=== PATIENT | male | born 1975 ===

== ENCOUNTER 2021-07-15 01:20 | Inpatient (IN) ==
[2021-07-15] MEDS ORDERED: Naloxone 0.4 MG/ML INJ IVP PRN (03:42)
[2021-07-15] MEDS ORDERED: Dextrose Gel 15 GM/37.5 ML TUBE PO PRN ×2 (03:51)
[2021-07-15] MEDS ORDERED: *HR* Dextrose 50 % in Water (Syg) 50 ML SYRINGE IVP PRN (03:51)
[2021-07-15] MEDS ORDERED: D5% in Water 1,000 ML IVC PRN (03:51)
[2021-07-15] MEDS ORDERED: *HR* LORazepam 2 MG/ML VIAL IVP PRN ×3 (04:03)
[2021-07-15 04:20] VITALS: BP 78/39; PULSE 95; TEMP 94.9; O2SAT 91
[2021-07-15] MEDS ORDERED: 0.9 % Sodium Chloride 500 ML ONE (04:21)
[2021-07-15] MEDS ORDERED: 0.9 % Sodium Chloride 500 ML IVC ONE (04:24)
[2021-07-15] MEDS ORDERED: Albumin 25% 25gram/100mL 25 GM/100 ML IV.SOLN IVC SCH (04:30)
[2021-07-15] MEDS ORDERED: D5% in 0.45% NACL 1,000 ML IVC SCH (04:30)
[2021-07-15] MEDS ORDERED: Ipratropium/Albuterol Neb 3 ML IH PRN (05:02)
[2021-07-15] MEDS ORDERED: Ondansetron 4 MG/2 ML VIAL IVP PRN (05:03)
[2021-07-15 05:35] LABS: INR 4.1
[2021-07-15 05:37] LABS: Prothrombin Time 44.7 Seconds (9.4-12.1)
[2021-07-15 05:38] LABS: Activated Partial Thrombo Time 57.2 Seconds (26.0-36.0)
[2021-07-15 05:41] LABS: Albumin 1.5 g/dL (3.5-5.7); Albumin/Globulin Ratio 0.6 (1.1-2.2); Bilirubin,Direct 1.4 mg/dL (0.0-0.2); Bilirubin,Indirect 0.7 mg/dL (0.0-1.0); Bilirubin,Total 2.1 mg/dL (0.3-1.0); Calcium 7.5 mg/dL (8.6-10.3); Globulin 2.7 g/dL (2.4-3.5); Magnesium 2.1 mg/dL (1.6-2.6); Phosphorous 8.6 mg/dL (2.7-4.5); Potassium 4.4 mEq/L (3.5-5.1); Total Protein 4.2 g/dL (6.4-8.9)
[2021-07-15 05:42] LABS: Lactate Dehydrogenase 290 Units/L (140-271)
[2021-07-15 06:29] LABS: Troponin I < 0.03 ng/mL (< 0.04)
[2021-07-15] MEDS ORDERED: Piperacillin/Tazobactam 3.375 GM in 0.9 % Sodium Chloride Mini Bag 100 ML IVPB SCH (11:00)
[2021-07-15 16:58] LABS: Acinetobacter baumannii by PCR Not Detected (Not Detect); Candida albicans by PCR Not Detected (Not Detect); Candida glabrata by PCR Not Detected (Not Detect); Candida krusei by PCR Not Detected (Not Detect); Candida parapsilosis by PCR Not Detected (Not Detect); Candida tropicalis by PCR Not Detected (Not Detect); Enterobacter cloacae Cmplx PCR Not Detected (Not Detect); Enterococcus by PCR Not Detected (Not Detect); Escherichia coli by PCR DETECTED (Not Detect); Klebsiella oxytoca by PCR Not Detected (Not Detect); Klebsiella pneumoniae by PCR Not Detected (Not Detect); Proteus by PCR Not Detected (Not Detect); Pseudomonas aeruginosa by PCR Not Detected (Not Detect); Serratia marcescens by PCR Not Detected (Not Detect); Staphylococcus aureus by PCR Not Detected (Not Detect); Staphylococcus by PCR Not Detected (Not Detect); Streptococcus agalactiae(B)PCR Not Detected (Not Detect); Streptococcus by PCR Not Detected (Not Detect); Streptococcus pneumoniae PCR Not Detected (Not Detect); Streptococcus pyogenes (A) PCR Not Detected (Not Detect); blaKPC Carbapenem-Resist Gene Not Detected (Not Detect)
[2021-07-15] MEDS ORDERED: Thiamine (B-1) 100 MG, Folic Acid 1 MG, MVI, adult with vitamin K 10 ML in 0.9 % Sodi... IVPB SCH (18:00)
== END 2021-07-15 05:34 | disposition expired | DRG 720 ==
LOC: 2NNU
PROVIDERS: ADMIT Internal Medicine; ATTEND Internal Medicine